=== PATIENT | male | born 1980 | race Caucasian/White ===

== ENCOUNTER 2018-02-02 20:04 | Emergency (ER) | payer OTHER ==
[2018-02-02 20:53] LABS: BASO % 0.5 % (0.0-1.0); EOS # 0.1 10^3/uL (0.0-0.50); EOS % 1.4 % (0.0-3.0); HEMATOCRIT 47.8 % (42.0-52.0); HEMOGLOBIN 16.4 g/dl (13.5-17.5); IMMATURE GRANULOCYTE % 0.2 % (0-3.0); LYMPH # 3.6 10^3/uL (1.5-4.5); LYMPH % 43.5 % (24.0-44.0); MEAN CORPUSCULAR HEMOGLOBIN 29.5 pg (27.0-33.0); MEAN CORPUSCULAR HGB CONC 34.3 g/dl (32.0-36.5); MEAN CORPUSCULAR VOLUME 86.1 fl (80.0-96.0); MONO # 0.7 10^3/uL (0.0-0.8); MONO % 8.1 % (0.0-5.0); NEUTROPHILS # 3.8 10^3/uL (1.8-7.7); NEUTROPHILS % 46.3 % (36.0-66.0); PLATELET COUNT, AUTOMATED 208 10^3/uL (150-450); RED BLOOD COUNT 5.55 10^6/uL (4.30-6.10); RED CELL DISTRIBUTION WIDTH 12.7 % (11.5-14.5); WHITE BLOOD COUNT 8.3 10^3/uL (4.0-10.0)
[2018-02-02 21:21] LABS: ANION GAP 7 MEQ/L (8-16); BLOOD UREA NITROGEN 18 MG/DL (7-18); CALCIUM LEVEL 8.7 MG/DL (8.5-10.1); CARBON DIOXIDE LEVEL 26 MEQ/L (21-32); CHLORIDE LEVEL 107 MEQ/L (98-107); CPK CREATINE PHOSPHOKINASE 326 U/L (39-308); CREATININE FOR GFR 0.92 MG/DL (0.70-1.30); GLOMERULAR FILTRATION RATE > 60.0 (>60); GLUCOSE, FASTING 104 MG/DL (70-100); MB/CK RELATIVE INDEX 1.23 (< OR =4); POTASSIUM SERUM 3.8 MEQ/L (3.5-5.1); SODIUM LEVEL 140 MEQ/L (136-145); TROPONIN I < 0.02 NG/ML (< 0.10)
== END 2018-02-02 22:32 | disposition home or self-care (01) ==
LOC: M ED 20:04
DX: R07.89 Other chest pain (principal); I10 Essential (primary) hypertension; G47.33 Obstructive sleep apnea (adult) (pediatric); Z79.82 Long term (current) use of aspirin; Z79.899 Other long term (current) drug therapy
CPT/HCPCS: 71045

== ENCOUNTER 2022-03-22 09:05 | Emergency (ER) | payer OTHER ==
[~2022-03-22] VITALS: Ht 188 cm; Wt 130.4 kg
[~2022-03-22 09:05] MED LIST: ASPI-527 PO; METO1TAB32 PO
[2022-03-22] MEDS ORDERED: ROSU10TA6 PO (09:46)
[2022-03-22 10:55] LABS: RSV AMPLIFICATION NEGATIVE (NEGATIVE)
[2022-03-22] MEDS ORDERED: LOSA25TA13 PO (11:43)
[2022-03-22] MEDS ORDERED: ASPI-161 PO (11:44)
[2022-03-22] MEDS ORDERED: HOME MED LIST COMPLETE! XX SCH (11:45)
[2022-03-22] MEDS ORDERED: NIRMATRELVIR/RITONAVIR CO-PACK (EMERGENCY USE AUTH) PO SCH ×2 (12:00→21:00)
[2022-03-22 12:30] VITALS: O2SAT 96
[2022-03-22 12:31] VITALS: BP 142/65
== END 2022-03-22 12:35 | disposition home or self-care (01) ==
LOC: M ED 09:05
DX: U07.1 COVID-19 (principal)

== ENCOUNTER 2022-09-21 23:29 | Inpatient (IN) | payer OTHER ==
[~2022-09-21] VITALS: Ht 188 cm; Wt 129.5 kg
[~2022-09-21 23:29] MED LIST changes: +ASPI-161 PO; +LOSA25TA13 PO; +ROSU10TA6 PO
[2022-09-22] MEDS ORDERED: METOPROLOL SUCC *XL* 25MG TAB (TopROL *XL*) PO ONE (01:05)
[2022-09-22] MEDS ORDERED: LOSARTAN 25 MG TAB PO ONE (01:05)
[2022-09-22 01:22] LABS: ETHYL ALCOHOL (ETHANOL) < 0.003 % (0.000-0.010)
[2022-09-22 01:24] LABS: ACETAMINOPHEN LEVEL < 2.0 UG/ML (10.0-20.0); ALBUMIN 3.9 G/DL (3.2-5.2); ALKALINE PHOSPHATASE 65 U/L (46-116); ALT/SGPT 23 U/L (7.0-40); AST/SGOT 18 U/L (<34); BILIRUBIN,DIRECT 0.1 MG/DL (<0.4); BILIRUBIN,TOTAL 0.4 MG/DL (0.3-1.2); BLOOD UREA NITROGEN 18 MG/DL (9-23); CARBON DIOXIDE LEVEL 26 MMOL/L (20-31); CHLORIDE LEVEL 108 MMOL/L (98-107); CREATININE FOR GFR 0.93 MG/DL (0.70-1.30); GLOMERULAR FILTRATION RATE > 60.0 (>60); GLUCOSE, FASTING 99 MG/DL (60-100); POTASSIUM SERUM 3.7 MMOL/L (3.5-5.1); SALICYLATE LEVEL < 3.0 MG/DL (<30); SODIUM LEVEL 140 MMOL/L (136-145); TOTAL PROTEIN 6.7 G/DL (5.7-8.2)
[2022-09-22 01:26] LABS: THYROID STIMULATING HORMONE 3.803 uIU/ML (0.55-4.78)
[2022-09-22 01:32] LABS: HEMATOCRIT 46.5 % (42.0-52.0); HEMOGLOBIN 15.9 g/dl (13.5-17.5); MEAN CORPUSCULAR HEMOGLOBIN 28.8 pg (27.0-33.0); MEAN CORPUSCULAR HGB CONC 34.2 g/dl (32.0-36.5); MEAN CORPUSCULAR VOLUME 84.1 fl (80.0-96.0); PLATELET COUNT, AUTOMATED 190 10^3/uL (150-450); RED BLOOD COUNT 5.53 10^6/uL (4.30-6.10); WHITE BLOOD COUNT 6.9 10^3/uL (4.0-10.0)
[2022-09-22 01:35] LABS: AMPHETAMINES LEVEL URINE NEGATIVE (NEGATIVE); BARBITURATES URINE NEGATIVE (NEGATIVE); BENZODIAZEPINES URINE NEGATIVE (NEGATIVE); CANNABINOIDS URINE NEGATIVE (NEGATIVE); COCAINE METABOLITE URINE NEGATIVE (NEGATIVE); METHADONE URINE NEGATIVE (NEGATIVE); OPIATES URINE NEGATIVE (NEGATIVE); PHENCYCLIDINE URINE NEGATIVE (NEGATIVE)
[2022-09-22] MEDS ORDERED: HOME MED LIST COMPLETE! XX SCH (02:10)
[2022-09-22] MEDS: ROSUVASTATIN 10 MG TAB (CRESTOR) PO SCH (21:21)
[2022-09-22] MEDS: ASPIRIN 81MG ENTERIC TABLET PO SCH (21:21)
[2022-09-22] MEDS: METOPROLOL SUCC *XL* 25MG TAB (TopROL *XL*) PO SCH (21:24)
[2022-09-22] MEDS: LOSARTAN 25 MG TAB PO SCH (21:24)
[2022-09-23] MEDS ORDERED: ACETAMINOPHEN TAB 650MG DOSE (2X325MG) PO PRN (16:25)
[2022-09-23] MEDS ORDERED: MOM 30ML SUSPENSION UDC PO PRN (16:25)
[2022-09-23] MEDS ORDERED: MAALOX 30 ML SUSP *UDC PO PRN (16:25)
[2022-09-23] MEDS ORDERED: diphenhydrAMINE 25MG CAP PO PRN (16:25)
[2022-09-23] MEDS ORDERED: IBUPROFEN 400MG TAB PO PRN (16:25)
[2022-09-23] MEDS ORDERED: traZODone 50 MG TAB PO PRN (16:25)
[2022-09-23] MEDS: ROSUVASTATIN 10 MG TAB (CRESTOR) PO SCH (20:49)
[2022-09-23] MEDS: ASPIRIN 81MG ENTERIC TABLET PO SCH (20:49)
[2022-09-23] MEDS: LOSARTAN 25 MG TAB PO SCH (20:50)
[2022-09-23] MEDS: METOPROLOL SUCC *XL* 25MG TAB (TopROL *XL*) PO SCH (20:50)
[2022-09-23] MEDS ORDERED: amLODIPine 5 MG TAB PO ONE (23:00)
[2022-09-23] MEDS ORDERED: ALPRAZolam 0.5 MG TAB PO ONE (23:00)
[2022-09-24 02:46] VITALS: BP 124/82; TEMP 97.6; O2SAT 96
[2022-09-24 06:01] VITALS: BP 131/79; TEMP 96.6; O2SAT 96
[2022-09-24 18:26] VITALS: BP 166/76; TEMP 97.6; O2SAT 96
[2022-09-24 19:45] VITALS: BP 151/73
[2022-09-24] MEDS: ASPIRIN 81MG ENTERIC TABLET PO SCH (20:43)
[2022-09-24] MEDS: LOSARTAN 25 MG TAB PO SCH (20:43)
[2022-09-24] MEDS: METOPROLOL SUCC *XL* 25MG TAB (TopROL *XL*) PO SCH (20:43)
[2022-09-24] MEDS: ROSUVASTATIN 10 MG TAB (CRESTOR) PO SCH (20:43)
[2022-09-25 05:50] VITALS: BP 124/72; TEMP 97.4; O2SAT 97
[2022-09-25 17:51] VITALS: BP 157/80; TEMP 97.3; O2SAT 95
[2022-09-25] MEDS: ASPIRIN 81MG ENTERIC TABLET PO SCH (20:28)
[2022-09-25] MEDS: LOSARTAN 25 MG TAB PO SCH (20:28)
[2022-09-25] MEDS: ROSUVASTATIN 10 MG TAB (CRESTOR) PO SCH (20:28)
[2022-09-25 20:29] VITALS: BP 135/89
[2022-09-25] MEDS: METOPROLOL SUCC *XL* 25MG TAB (TopROL *XL*) PO SCH (20:29)
[2022-09-26 07:01] VITALS: BP 132/72; TEMP 97.1; O2SAT 96
== END 2022-09-26 15:01 | disposition home or self-care (01) | DRG 754 ==
LOC: M ED 23:29 → M ED INP 09-23 16:25 → M PSY 09-24 01:48
PROVIDERS: ADMIT Student in an Organized Health Care Education/Training Program; ATTEND Student in an Organized Health Care Education/Training Program
DX: F32.A Depression, unspecified (principal); F43.20 Adjustment disorder, unspecified; I48.91 Unspecified atrial fibrillation; R45.851 Suicidal ideations; E78.5 Hyperlipidemia, unspecified; F17.200 Nicotine dependence, unspecified, uncomplicated; I10 Essential (primary) hypertension; Z79.82 Long term (current) use of aspirin; Z79.899 Other long term (current) drug therapy; Z20.822 Contact with and (suspected) exposure to COVID-19; Z63.0 Problems in relationship with spouse or partner

== ENCOUNTER 2023-10-28 16:53 | Emergency (ER) | payer OTHER ==
[~2023-10-28] VITALS: Ht 188 cm; Wt 131.2 kg
[~2023-10-28 16:53] MED LIST changes: -ASPI-161 PO; +ASPI-615 PO; -ROSU10TA6 PO; +ROSU10TA61 PO
[2023-10-28] MEDS ORDERED: ZOLP6.2526 (17:00)
[2023-10-28] MEDS ORDERED: IBUP-1022 PO (19:15)
[2023-10-28 19:30] VITALS: BP 142/88; TEMP 99.4; O2SAT 95
== END 2023-10-28 19:33 | disposition home or self-care (01) ==
LOC: M ED 16:53
DX: S60.222A Contusion of left hand, initial encounter (principal); M89.242 Other disorders of bone development and growth, left hand; W22.09XA Striking against other stationary object, initial encounter; E78.5 Hyperlipidemia, unspecified; G47.33 Obstructive sleep apnea (adult) (pediatric); I10 Essential (primary) hypertension; Y92.9 Unspecified place or not applicable; Y93.89 Activity, other specified; Y99.0 Civilian activity done for income or pay; Z79.82 Long term (current) use of aspirin; Z79.899 Other long term (current) drug therapy